=== PATIENT | female | born 1985 | race Caucasian/White ===

== ENCOUNTER 2018-03-29 14:48 | Emergency (ER) | payer OTHER ==
[~2018-03-29] VITALS: Ht 170.2 cm; Wt 68.8 kg
[2018-03-29] MEDS ORDERED: BACTRIM,SEPT1 TABLET PO (15:28)
[2018-03-29 16:13] VITALS: BP 123/85
== END 2018-03-29 16:14 | disposition home or self-care (01) ==
LOC: EME 14:48
DX: L02.412 Cutaneous abscess of left axilla (principal); R59.1 Generalized enlarged lymph nodes; F17.200 Nicotine dependence, unspecified, uncomplicated
CPT/HCPCS: 99281; 99283